=== PATIENT | male | born 1955 | race Caucasian/White ===

== ENCOUNTER 2016-11-18 10:52 | Emergency (ER) | payer OTHER | END 2016-11-18 11:50 | disposition home or self-care (01) | LOC: ER1 10:52 | DX: J06.9 Acute upper respiratory infection, unspecified (principal); H92.01 Otalgia, right ear; I10 Essential (primary) hypertension; Z88.0 Allergy status to penicillin; Z87.891 Personal history of nicotine dependence | CPT/HCPCS: 99282 ==